=== PATIENT | female | born 1935 | race Caucasian/White ===

== ENCOUNTER 2018-04-09 17:24 | Inpatient (IN) ==
--- NOTE | 2018-04-09 18:09 | Emergency Department Note ---
General Adult HPI - General Chief complaint: Urogenital-Female Stated complaint: Confusion, cloudy urine Time Seen by Provider: 04/09/18 18:04 Source: EMS Mode of arrival: EMS Limitations: no limitations - History of Present Illness HPI Narrative: This is a dementia patient that resides at [facility] and today he has had fever and increased confusion. Patient is unable to give us any history. - Related Data Home Medications Medication Instructions Recorded Confirmed Hydrocodone/APAP 7.5/325Mg [[place] 1 tab PO Q8HP PRN 12/24/17 04/09/18 7.5-325Mg] Meloxicam [Mobic] 7.5 mg PO DAILY 12/24/17 04/09/18 OLANZapine [Zyprexa] 10 mg PO DAILY 12/24/17 04/09/18 Oxandrolone 10 mg PO DAILY 12/24/17 04/09/18 Polyethylene Glycol 3350 1,700 gm PO DAILY 12/24/17 04/09/18 [Laxaclear] medroxyPROGESTERone [Provera] 10 mg PO DAILY 12/24/17 04/09/18 traMADol [Ultram] 50 mg PO Q6HP PRN 12/24/17 04/09/18 Docusate Sodium [Colace] 100 mg PO BID 04/09/18 04/09/18 Levothyroxine Sodium [Synthroid] 112 mcg PO DAILY 04/09/18 04/09/18 Allergies Allergy/AdvReac Type Severity Reaction Status Date / Time cefazolin Allergy Unknown Verified 12/24/17 11:49 codeine Allergy Unknown Verified 12/24/17 11:49 iodine Allergy Unknown Verified 12/24/17 11:49 meperidine Allergy Unknown Verified 12/24/17 11:49 metronidazole Allergy Unknown Verified 12/24/17 11:49 morphine Allergy Unknown Verified 12/24/17 11:49 Opioids - Morphine Analogues Allergy Unknown Verified 12/24/17 11:49 Sulfa (Sulfonamide Allergy Unknown Verified 12/24/17 11:49 Antibiotics) Sulindac Allergy Unknown Verified 12/24/17 11:49 Review of Systems Limitations: ROS unobtainable due to patients medical condition Past Medical History - Past Medical History PMFSH Narrative: Medical History Hypertension (Chronic) Asthma (Chronic) Pacemaker (Chronic) Hypothyroidism (Chronic) Dehydration (Chronic) Past Surgical History History of hysterectomy (Resolved) History of knee replacement (Resolved) Family History Mom Asthma Medical history: Reports: asthma, COPD, dementia, other (pacemaker) - Social History smoking status: Unknown if ever smoked Alcohol use: Reports: None Drug use: Reports: none Physical Exam Limitations: no limitations General appearance: alert, in no apparent distress Head: atraumatic, normocephalic Eye: Present: normal appearance ENT: mucous membranes dry Neck: Present: normal inspection Chest: Present: normal inspection Respiratory: Present: normal lung sounds bilaterally Cardiovascular: Present: regular rate, normal rhythm, normal heart sounds Abdominal: Present: soft. Absent: distention, tenderness Skin: Present: warm, dry, intact Course Vital Signs Temperature 100.3 F H 04/09/18 17:25 Pulse Rate 80 04/09/18 17:25 Respiratory Rate 18 04/09/18 17:25 Blood Pressure 109/61 04/09/18 17:25 Temperature 99.9 F H 04/09/18 19:13 Pulse Rate 37 L 04/09/18 19:30 Respiratory Rate 18 04/09/18 17:25 Blood Pressure 124/97 04/09/18 19:30 Pulse Oximetry (%) 100 04/09/18 19:13 Medical Decision Making - [facility] Narrative Medical decision making narrative: Urinalysis is consistent with UTI and possible urosepsis. Blood cultures were obtained she is given Levaquin IV and she will be admitted to the hospital. - Lab Data Lab results reviewed: Yes I reviewed the patient's lab results. Result diagrams: 04/09/18 17:56 04/09/18 17:56 Lab Results 04/09/18 04/09/18 04/09/18 Range/Units 17:56 17:56 17:56 WBC 9.8 (4.5-11.0) K/mcL RBC 3.52 L (4.00-5.20) M/mcL Hgb 9.9 L (12.0-15.0) g/dL Hct 30.6 L (36.0-48.0) % MCV 86.8 (80.0-100.0) fL MCH 28.2 (26.0-34.0) pg MCHC 32.5 (31.0-36.0) g/dL RDW 14.9 H (11.5-14.5) % Plt Count 338 (140-440) K/mcL MPV 10.4 (7.4-10.4) fL Total Counted 100 Seg Neutrophils % 82 H (38-78) % Band Neutrophils % Not Reportable Lymphocytes % 8 L (15-49) % Monocytes % (Manual) 4 (1-12) % Eosinophils % (Manual) 6 (0-7) % Platelet Estimate Normal (NORMAL) RBC Morphology Normal (NORMAL) VBG Lactic Acid 2.3 H (0.5-2.2) mmol/L Sodium 137 (133-145) mmol/L Potassium 4.2 (3.3-5.1) mmol/L Chloride 100 (96-108) mmol/L Carbon Dioxide 21 L (22-30) mmol/L Anion Gap 16.0 (8-16) BUN 28 H (8-23) mg/dl Creatinine 1.1 (0.6-1.1) mg/dl GFR Calculation 46 Glucose 146 H (70-105) mg/dL Calcium 9.8 (8.6-10.4) mg/dl Total Bilirubin 0.3 (0.0-1.0) mg/dL AST 14 (0-37) U/l ALT 12 (0-40) U/l Alkaline Phosphatase 63 (39-117) U/L Total Protein 7.5 (5.9-8.4) gm/dL Albumin 3.3 (3.2-5.2) gm/dL Globulin 4.2 H (2.2-3.7) gm/dL Albumin/Globulin Ratio 0.8 L (1.0-2.3) Urine Color Urine Appearance Urine pH (5.0-9.0) Ur Specific [place] (1.000-1.035) Urine Protein (NEG) mg/dL Urine Glucose (UA) (NEG) mg/dL Urine Ketones (NEG) mg/dL Urine Occult Blood (<0.03) mg/dL Urine Nitrate (NEG) Urine Bilirubin (NEG) mg/dL Urine Urobilinogen (NEG) mg/dL Ur Leukocyte Esterase (NEG) /uL Urine RBC (0-1) /hpf Urine WBC (0-4) /hpf Ur Squamous Epith Cells (0-4) /hpf Calcium Oxalate Crystal (0) /hpf Amorphous Crystals (0) /hpf Urine Bacteria (0) /hpf Urine Mucus (0) /hpf Ur Culture Indicated? 04/09/18 Range/Units 18:06 WBC (4.5-11.0) K/mcL RBC (4.00-5.20) M/mcL Hgb (12.0-15.0) g/dL Hct (36.0-48.0) % MCV (80.0-100.0) fL MCH (26.0-34.0) pg MCHC (31.0-36.0) g/dL RDW (11.5-14.5) % Plt Count (140-440) K/mcL MPV (7.4-10.4) fL Total Counted Seg Neutrophils % (38-78) % Band Neutrophils % Lymphocytes % (15-49) % Monocytes % (Manual) (1-12) % Eosinophils % (Manual) (0-7) % Platelet Estimate (NORMAL) RBC Morphology (NORMAL) VBG Lactic Acid (0.5-2.2) mmol/L Sodium (133-145) mmol/L Potassium (3.3-5.1) mmol/L Chloride (96-108) mmol/L Carbon Dioxide (22-30) mmol/L Anion Gap (8-16) BUN (8-23) mg/dl Creatinine (0.6-1.1) mg/dl GFR Calculation Glucose (70-105) mg/dL Calcium (8.6-10.4) mg/dl Total Bilirubin (0.0-1.0) mg/dL AST (0-37) U/l ALT (0-40) U/l Alkaline Phosphatase (39-117) U/L Total Protein (5.9-8.4) gm/dL Albumin (3.2-5.2) gm/dL Globulin (2.2-3.7) gm/dL Albumin/Globulin Ratio (1.0-2.3) Urine Color Yellow Urine Appearance Turbid Urine pH 5.0 (5.0-9.0) Ur Specific [place] 1.011 (1.000-1.035) Urine Protein Neg (NEG) mg/dL Urine Glucose (UA) Negative (NEG) mg/dL Urine Ketones Neg (NEG) mg/dL Urine Occult Blood 0.03 A (<0.03) mg/dL Urine Nitrate Neg (NEG) Urine Bilirubin Neg (NEG) mg/dL Urine Urobilinogen 2.0 A (NEG) mg/dL Ur Leukocyte Esterase 500 A (NEG) /uL Urine RBC 1 (0-1) /hpf Urine WBC 89 H (0-4) /hpf Ur Squamous Epith Cells 0 (0-4) /hpf Calcium Oxalate Crystal Few A (0) /hpf Amorphous Crystals Few A (0) /hpf Urine Bacteria Mod A (0) /hpf Urine Mucus Mod (0) /hpf Ur Culture Indicated? Yes - Radiology Data Radiology results reviewed: Yes I reviewed the patient's radiology results. Disposition Pt seen by [employer]OR/PA only: No Clinical Impression: UTI (urinary tract infection) Disposition: Xfer As Inpt ([facility]) Condition: Fair Referrals: Luis Leung [Primary Care Provider] - Time of Disposition: 19:44
[2018-04-09] MEDS ORDERED: LACTATED RINGERS 1,000 ML IV ONE ×2 (18:10→20:25)
[2018-04-09 18:25] LABS: Mean Cell Volume 86.8 fL (80.0-100.0); Mean Corpuscular HGB Conc 32.5 g/dL (31.0-36.0); Mean Corpuscular Hemoglobin 28.2 pg (26.0-34.0); Platelet Count 338 K/mcL (140-440); RBC 3.52 M/mcL (4.00-5.20); Red Cell Distribution Width 14.9 % (11.5-14.5)
[2018-04-09 18:51] LABS: ALT/SGPT 12 U/l (0-40); Albumin 3.3 gm/dL (3.2-5.2); Albumin/Globulin Ratio 0.8 (1.0-2.3); Alkaline Phosphatase 63 U/L (39-117); Blood Urea Nitrogen 28 mg/dl (8-23)
[2018-04-09 18:59] LABS: Eosinophils % (Manual) 6 % (0-7); Lymphocytes % 8 % (15-49); Monocytes % (Manual) 4 % (1-12); Platelet Estimate NORMAL (NORMAL); RBC Morphology NORMAL (NORMAL); Segmented Neutrophils % 82 % (38-78)
--- NOTE | 2018-04-09 18:59 | XRay Report ---
CLINICAL INFORMATION: fever COMPARISON: 11/12/2015 FINDINGS: Moderate cardiomegaly is unchanged. Dual-chamber pacemaker leads in stable satisfactory position. Moderate hiatal hernia as increased from previous x-rays. The remaining mediastinum and pulmonary vessels are normal. Mild bibasilar airspace disease likely atelectasis effusion IMPRESSION: Mild bibasilar airspace disease, more prominent on the left, likely atelectasis Moderate hiatal hernia - increasing Interpreted and Authenticated by: Lázaro Owens 04/09/18
[2018-04-09 19:03] LABS: Appearance,Urine TURBID; Bacteria,Urine MOD /hpf (0); Bilirubin,Urine NEG (NEG); Calcium Oxalate Crystals,Urine FEW /hpf (0); Color,Urine YELLOW; Glucose,Urine (UA) NEGATIVE (NEG); Leukocyte Esterase,Urine 500 /uL (NEG); Mucus,Urine MOD /hpf (0); Protein,Urine NEG (NEG); Specific Gravity,Urine 1.011 (1.000-1.035); Urine Amorphous Crystals FEW /hpf (0); Urine Blood 0.03 mg/dL (<0.03); Urine RBC 1 /hpf (0-1); Urine Squamous Epithelial Cell 0 /hpf (0-4); Urine WBC 89 /hpf (0-4)
[2018-04-09] MEDS ORDERED: LEVOFLOXACIN 750 MG/150 ML BAG IV ONE (19:37)
[2018-04-09] MEDS ORDERED: traMADol 50 MG TABLET PO PRN ×2 (21:14→21:53)
[2018-04-09] MEDS ORDERED: HYDROCODONE/APAP 7.5/325MG TABLET PO PRN (21:14)
--- NOTE | 2018-04-09 21:25 | Internal Med History&Physical ---
Medical - H&P: [facility] Patient information: Note initiated : 04/09/18 at 9:22 pm Service Date, if different from initiated Date: [] Patient: Shweta Padilla a 82 y/o F admitted on for Confusion, cloudy urine. Chief Complaint: [] Chief complaint: worsened confusion History of present illness: Ms. Padilla is a 82 year old F elderly female with dementia. She has become more confused. She has history of recurrent urinary tract infections and dehydration. Patient is unable to give history. She was tachycardic and had mild fever of 99 so treated with sepsis fluid bolus. Patient is improved. Urine is infected and she is referred for admission ROS unobtainable: due to mental status Medical - H&P: PMH Medical history: Hypertension (Chronic) Asthma (Chronic) Pacemaker (Chronic) Hypothyroidism (Chronic) Dehydration (Chronic) decubitus ulcers left ankle Surgical history: hysterectomy knee replacement Family history: reviewed and not pertinent (unable to obtain) Social history: Resides at [facility] facility no pulsed form available so default CODE STATUS will be full code. I did try to call the guardian but not able to dial properly Have you smoked in the last 12 months: No Drug use: none Alcohol use: none Medical - H&P: Meds Home Medications Medication Instructions Recorded Confirmed Type Hydrocodone/APAP 7.5/325Mg [[place] 1 tab PO Q8HP PRN 12/24/17 04/09/18 History 7.5-325Mg] Meloxicam [Mobic] 7.5 mg PO DAILY 12/24/17 04/09/18 History OLANZapine [Zyprexa] 10 mg PO DAILY 12/24/17 04/09/18 History Oxandrolone 10 mg PO DAILY 12/24/17 04/09/18 History Polyethylene Glycol 3350 1,700 gm PO DAILY 12/24/17 04/09/18 History [Laxaclear] medroxyPROGESTERone [Provera] 10 mg PO DAILY 12/24/17 04/09/18 History traMADol [Ultram] 50 mg PO Q6HP PRN 12/24/17 04/09/18 History Docusate Sodium [Colace] 100 mg PO BID 04/09/18 04/09/18 History Levothyroxine Sodium [Synthroid] 112 mcg PO DAILY 04/09/18 04/09/18 History Allergies Allergy/AdvReac Type Severity Reaction Status Date / Time cefazolin Allergy Unknown Verified 12/24/17 11:49 codeine Allergy Unknown Verified 12/24/17 11:49 iodine Allergy Unknown Verified 12/24/17 11:49 meperidine Allergy Unknown Verified 12/24/17 11:49 metronidazole Allergy Unknown Verified 12/24/17 11:49 morphine Allergy Unknown Verified 12/24/17 11:49 Opioids - Morphine Analogues Allergy Unknown Verified 12/24/17 11:49 Sulfa (Sulfonamide Allergy Unknown Verified 12/24/17 11:49 Antibiotics) Sulindac Allergy Unknown Verified 12/24/17 11:49 Medical - H&P: Exam - Constitutional Vitals: Temp Pulse Resp BP Pulse Ox 99.9 F H 37 L 18 134/111 100 04/09/18 19:13 04/09/18 19:30 04/09/18 17:25 04/09/18 21:00 04/09/18 19:13 General appearance: no acute distress, thin, no cooperative - Head Head exam: Present: normal inspection - Eye Eye exam: Absent: conjunctival injection, scleral icterus - Respiratory Respiratory exam: Present: normal respiratory exam - Cardiovascular Cardiovascular exam: Present: normal rate and rhythm, systolic murmur - GI/Abdominal GI/Abdominal exam: Present: normal bowel sounds, soft - Additional comments: Suprapubic tenderness noted and mild fullness - Expanded Exam Bladder Distention Description: Mild Kidneys Palpable: No (nontender ) - Extremities Exam Extremities exam: Absent: pedal edema - Skin Skin exam: Present: dry, warm. Absent: cyanosis, pallor Additional comments: Skin turgor poor with mild tenting Left lateral malleolus ulcer noted shallow other documented decubitus not evaluated Medical - H&P: Reslt - Labs CBC & Chem 7: 04/09/18 17:56 04/09/18 17:56 Labs: Short CBC 04/09/18 Range/Units 17:56 WBC 9.8 (4.5-11.0) K/mcL Hgb 9.9 L (12.0-15.0) g/dL Hct 30.6 L (36.0-48.0) % Plt Count 338 (140-440) K/mcL BMP 04/09/18 17:56 Sodium 137 Potassium 4.2 Chloride 100 Carbon Dioxide 21 L BUN 28 H Creatinine 1.1 Glucose 146 H Calcium 9.8 Liver Function 04/09/18 Range/Units 17:56 Total Bilirubin 0.3 (0.0-1.0) mg/dL AST 14 (0-37) U/l ALT 12 (0-40) U/l Alkaline Phosphatase 63 (39-117) U/L Albumin 3.3 (3.2-5.2) gm/dL Urine 04/09/18 Range/Units 18:06 Urine Color Yellow Urine Appearance Turbid Urine pH 5.0 (5.0-9.0) Ur Specific [place] 1.011 (1.000-1.035) Urine Protein Neg (NEG) mg/dL Urine Glucose (UA) Negative (NEG) mg/dL Medical - H&P: A/P (1) UTI (urinary tract infection) Problem details: Recurrent problem compounded by dehydration and dementia Current visit: Yes Status: Acute Retroperitoneal ultrasound will be obtained urine culture pending continue Levaquin (2) Altered mental status Problem details: Unclear how far from her usual baseline she is unable to obtain CODE STATUS currently Current visit: Yes Status: Acute Continue home medications and (3) Decubitus skin ulcer Problem details: Patient with at least 3 decubitus ulcers and follows at the wound clinic with Dr. Miller Current visit: Yes Status: Acute Physical therapy and turning protocol to be in place - Narrative A/P Narrative: 55 minutes spent in evaluation according to cover this patient today
[2018-04-09] MEDS ORDERED: ACETAMINOPHEN 325 MG TABLET PO PRN (21:53)
[2018-04-09] MEDS: LACTATED RINGERS 1,000 ML IV SCH (22:14)
[2018-04-09] MEDS: 0.9 % SODIUM CHLORIDE 10 ML SYRINGE IV SCH (22:33)
[2018-04-09] MEDS: OLANZapine 5 MG TABLET PO SCH (22:33)
[2018-04-10] MEDS: 0.9 % SODIUM CHLORIDE 10 ML SYRINGE IV SCH ×3 (04:39→22:00)
[2018-04-10 04:56] LABS: Basophils # (Auto) 0 K/mcL (0.0-0.3); Basophils % (Auto) 0.4 % (0.0-2.0); Eosinophils # (Auto) 0.6 K/mcL (0.0-0.7); Eosinophils % (Auto) 6.3 % (0.0-7.0); Granulocytes % (Auto) 77.1 % (38.0-78.0); Lymphocytes # (Auto) 0.9 K/mcL (1.5-4.8); Mean Cell Volume 86.8 fL (80.0-100.0); Mean Corpuscular HGB Conc 33.2 g/dL (31.0-36.0); Mean Corpuscular Hemoglobin 28.8 pg (26.0-34.0); Monocytes # (Auto) 0.6 K/mcL (0.1-0.9); Monocytes % (Auto) 6.2 % (1.0-12.0); Platelet Count 313 K/mcL (140-440); RBC 2.89 M/mcL (4.00-5.20); Red Cell Distribution Width 14.5 % (11.5-14.5)
[2018-04-10 05:06] LABS: Blood Urea Nitrogen 20 mg/dl (8-23)
[2018-04-10 05:17] LABS: Cortisol,AM 10.4 ug/dl (6.2-19.4)
[2018-04-10] MEDS: LACTATED RINGERS 1,000 ML IV SCH ×2 (06:01→15:12)
[2018-04-10] MEDS ORDERED: LEVOTHYROXINE SODIUM 112 MCG TABLET PO SCH (07:30)
[2018-04-10] MEDS: LEVOTHYROXINE SODIUM 112 MCG TABLET PO SCH (08:08)
[2018-04-10] MEDS ORDERED: POLYETHYLENE GLYCOL 3350 17 GM PACKET PO SCH (09:00)
[2018-04-10] MEDS ORDERED: OXANDROLONE 2.5 MG TABLET PO SCH (09:00)
[2018-04-10] MEDS ORDERED: medroxyPROGESTERone 10 MG TABLET PO SCH (09:00)
[2018-04-10] MEDS ORDERED: MELOXICAM 7.5 MG TABLET PO SCH (09:00)
[2018-04-10] MEDS: POLYETHYLENE GLYCOL 3350 17 GM PACKET PO SCH (10:01)
[2018-04-10] MEDS: DOCUSATE SODIUM 100 MG CAPSULE PO SCH ×2 (10:01→20:24)
[2018-04-10] MEDS: MELOXICAM 7.5 MG TABLET PO SCH (10:01)
[2018-04-10] MEDS: ENOXAPARIN 30 MG/0.3 ML SYRINGE SQ SCH (10:02)
[2018-04-10] MEDS: OXANDROLONE 2.5 MG TABLET PO SCH (10:02)
[2018-04-10] MEDS: medroxyPROGESTERone 10 MG TABLET PO SCH (10:06)
--- NOTE | 2018-04-10 10:52 | Internal Med Progress Note ---
Medical - PN: Subj Patient information: Note initiated : 04/10/18 at 10:42 am Service Date, if different from initiated Date: [] Patient: Shweta Padilla 82 y/o F admitted on 04/09/18 for Confusion, Cloudy Urine/UTI. Chief Complaint: [] Interval history: gomez cath placed mar 16. has become infected and pt dehydrated. Getting better on levaquin. REnal function and VSS. Pt alert and no complaints. Doesnt know why she is here. Knows she is hospital but not the name of it. - Constitutional Vitals: Vital Signs Temp Pulse Resp BP Pulse Ox 98.0 F 69 18 118/68 84 L 04/10/18 08:30 04/10/18 04:00 04/10/18 08:30 04/10/18 08:30 04/10/18 08:30 Period Temp Pulse Resp BP Sys/[place] Pulse Ox Last 24 Hr 98.0 F-100.3 F 37-120 18-20 90-166/35-145 66-100 Intake and Output 04/09/18 04/10/18 04/10/18 21:59 05:59 13:59 Intake Total 1000 / 1000 1150 / 1150 973 / 973 Output Total 550 / 550 Balance 1000 / 1000 600 / 600 973 / 973 Weight 106 lb Intake & Output: Intake & Output 04/09/18 04/10/18 04/10/18 21:59 05:59 13:59 Intake Total 1000 / 1000 1150 / 1150 973 / 973 Output Total 550 / 550 Balance 1000 / 1000 600 / 600 973 / 973 Weight 106 lb Intake: IV 1000 / 1000 1150 / 1150 973 / 973 Lactated Ringers 1,000 ml @ 125 1000 / 1000 1000 / 1000 973 / 973 mls/hr IV .Q8H [facility] Rx#: [id number] Output: Urine Catheter Amount 550 / 550 Other: Urine Color Dark Yellow Urine Odor Strong - GI/Abdominal GI/Abdominal exam: Present: normal bowel sounds, soft - Additional comments: mild suprapubic tenderness. no flank tenderness - Back Exam Back exam: Absent: CVA tenderness (L), CVA tenderness (R) - Skin Skin exam: Present: dry, warm Additional comments: left lat malleolar ulcer 2 cm size. Ulcer on sacrum deep 1 cm and 10 cm diameter. clean base healthy looking tissue not necrotic and no foul odor. Medical - PN: Obj Da - Labs CBC & Chem 7: 04/10/18 03:30 04/10/18 03:30 Labs: Abnormal Lab Results 04/10/18 04/09/18 04/09/18 03:30 18:06 17:56 RBC 2.89 L Hgb 8.3 L Hct 25.1 L RDW Lymph % (Auto) 10.0 L Lymph # (Auto) 0.9 L Seg Neutrophils % Lymphocytes % VBG Lactic Acid 2.3 H Carbon Dioxide BUN Glucose Globulin Albumin/Globulin Ratio Urine Occult Blood 0.03 A Urine Urobilinogen 2.0 A Ur Leukocyte Esterase 500 A Urine WBC 89 H Calcium Oxalate Crystal Few A Amorphous Crystals Few A Urine Bacteria Mod A 04/09/18 04/09/18 17:56 17:56 RBC 3.52 L Hgb 9.9 L Hct 30.6 L RDW 14.9 H Lymph % (Auto) Lymph # (Auto) Seg Neutrophils % 82 H Lymphocytes % 8 L VBG Lactic Acid Carbon Dioxide 21 L BUN 28 H Glucose 146 H Globulin 4.2 H Albumin/Globulin Ratio 0.8 L Urine Occult Blood Urine Urobilinogen Ur Leukocyte Esterase Urine WBC Calcium Oxalate Crystal Amorphous Crystals Urine Bacteria Meds: Medications Acetaminophen (Tylenol) 650 mg PO Q6HP PRN PRN Reason: PAIN/FEVER > 101 Hydrocodone Bitart/Acetaminophen ([place] 7.5/325mg) 1 tab PO Q8HP PRN PRN Reason: Pain Docusate Sodium (Colace) 100 mg PO BID [facility] Last Admin: 04/10/18 10:01 Dose: 100 mg Enoxaparin Sodium (Lovenox) 30 mg SQ DAILY [facility] Last Admin: 04/10/18 10:02 Dose: 30 mg Levofloxacin (Levaquin) 250 mg in 50 mls @ 50 mls/hr IV Q24H [facility] Lactated Ringer's (Lactated Ringers) 1,000 mls @ 125 mls/hr IV .Q8H [facility] Last Admin: 04/10/18 06:01 Dose: 125 mls/hr Levothyroxine Sodium (Synthroid) 112 mcg PO QAMAC [facility] Last Admin: 04/10/18 08:08 Dose: 112 mcg Medroxyprogesterone Acetate (Provera) 10 mg PO DAILY [facility] Last Admin: 04/10/18 10:06 Dose: 10 mg Meloxicam (Mobic) 7.5 mg PO DAILY [facility] Last Admin: 04/10/18 10:01 Dose: 7.5 mg Olanzapine (Zyprexa) 10 mg PO HS [facility] Last Admin: 04/09/18 22:33 Dose: 10 mg Oxandrolone (Oxandrin) 10 mg PO DAILY [facility] Last Admin: 04/10/18 10:02 Dose: 10 mg Polyethylene Glycol (Miralax) 17 gm PO DAILY [facility] Last Admin: 04/10/18 10:01 Dose: 17 gm Sodium Chloride (Saline Flush) 10 ml IV Q8 [facility] Last Admin: 04/10/18 04:39 Dose: Not Given Tramadol HCl (Ultram) 50 mg PO Q6HP PRN PRN Reason: Pain Medical - PN: A/P - Time Spent With Patient Total time spent is greater than 50% in coordination of care (as documented) at patient's floor/unit and/or counseling patient: Greater than 35 minutes (1) UTI (urinary tract infection) Problem details: Recurrent problem compounded by dehydration and dementia Status: Acute Assessment and plan: gomez is problematic but will just be changed due to the sacral decub Current Visit: Yes (2) Altered mental status Problem details: Unclear how far from her usual baseline she is unable to obtain CODE STATUS currently Status: Acute Assessment and plan: improved. baseline demential compounded by UTI delirium. more alert today. conversant disoriented. Current Visit: Yes (3) Decubitus skin ulcer Problem details: Patient with at least 3 decubitus ulcers and follows at the wound clinic with Dr. Miller Status: Acute Assessment and plan: the pre sacral decub is large. Will change to inpatient for now for wound care. Culture planned but does not appear infected clinically Current Visit: Yes (4) Dementia arising in the senium and presenium Problem details: steady decline by chart notes. no family here yet. mild dementia 2016 more severe in last 6 months. Status: Acute Assessment and plan: need to have a POLST form addressed. Goals of care planning. Current Visit: Yes Medical - PN: Qual - Stroke Symptom Onset Unknown: No - VTE Deep Vein Thrombosis/Pulmonary Embolism Present on Admission: No
[2018-04-10] MEDS: LEVOFLOXACIN 250 MG/50 ML BAG IV SCH (11:28)
[2018-04-10] MEDS ORDERED: CIPROFLOXACIN 400 MG/200 ML BAG IV SCH (12:00)
[2018-04-10] MEDS: OLANZapine 5 MG TABLET PO SCH (20:24)
[2018-04-10] MEDS ORDERED: OLANZapine 5 MG TABLET PO SCH (21:00)
[2018-04-11] MEDS: LACTATED RINGERS 1,000 ML IV SCH ×2 (01:52→16:39)
[2018-04-11] MEDS: 0.9 % SODIUM CHLORIDE 10 ML SYRINGE IV SCH ×4 (06:02→22:50)
[2018-04-11 07:04] LABS: Basophils # (Auto) 0 K/mcL (0.0-0.3); Basophils % (Auto) 0.5 % (0.0-2.0); Eosinophils # (Auto) 0.6 K/mcL (0.0-0.7); Eosinophils % (Auto) 8.2 % (0.0-7.0); Granulocytes % (Auto) 68.9 % (38.0-78.0); Lymphocytes % (Auto) 14.7 % (15.5-49.0); Mean Cell Volume 86.4 fL (80.0-100.0); Mean Corpuscular Hemoglobin 28.5 pg (26.0-34.0); Monocytes # (Auto) 0.5 K/mcL (0.1-0.9); Monocytes % (Auto) 7.7 % (1.0-12.0); Platelet Count 275 K/mcL (140-440); RBC 2.65 M/mcL (4.00-5.20); Red Cell Distribution Width 14.6 % (11.5-14.5)
[2018-04-11 07:14] LABS: ALT/SGPT 8 U/l (0-40); Albumin 2.3 gm/dL (3.2-5.2); Albumin/Globulin Ratio 0.7 (1.0-2.3); Alkaline Phosphatase 47 U/L (39-117); Bilirubin,Direct < 0.2 mg/dL (0.0-0.3); Blood Urea Nitrogen 11 mg/dl (8-23); Gamma Glutamyl Transpeptidase 22 U/L (5-36)
[2018-04-11] MEDS: LEVOTHYROXINE SODIUM 112 MCG TABLET PO SCH (07:25)
[2018-04-11] MEDS: medroxyPROGESTERone 10 MG TABLET PO SCH (09:08)
[2018-04-11] MEDS: ENOXAPARIN 30 MG/0.3 ML SYRINGE SQ SCH (09:08)
[2018-04-11] MEDS: MELOXICAM 7.5 MG TABLET PO SCH (09:08)
[2018-04-11] MEDS: OXANDROLONE 2.5 MG TABLET PO SCH (09:08)
[2018-04-11] MEDS: POLYETHYLENE GLYCOL 3350 17 GM PACKET PO SCH (09:09)
[2018-04-11] MEDS: LEVOFLOXACIN 250 MG/50 ML BAG IV SCH (09:09)
[2018-04-11] MEDS: DOCUSATE SODIUM 100 MG CAPSULE PO SCH ×2 (09:09→20:10)
[2018-04-11] MEDS ORDERED: VANCOMYCIN PER PHARMACY IV SCH (10:49)
[2018-04-11] MEDS ORDERED: DAPTOmycin 500 MG VIAL IV SCH (11:30)
[2018-04-11] MEDS: AZTREONAM 1 GM VIAL IV SCH ×2 (11:42→22:50)
[2018-04-11] MEDS ORDERED: VANCOMYCIN 750 MG in 0.9 % SODIUM CHLORIDE 250 ML IV SCH (12:00)
[2018-04-11] MEDS: LINEZOLID 600 MG TABLET PO SCH ×2 (12:55→20:09)
--- NOTE | 2018-04-11 14:33 | Internal Med Progress Note ---
Medical - PN: Subj Patient information: Note initiated : 04/11/18 at 2:30 pm Service Date, if different from initiated Date: [] Patient: Shweta Padilla 82 y/o F admitted on 04/11/18 for Confusion, Cloudy Urine/UTI. Chief Complaint: [] Interval history: This is a 82 yr female with dementia, admitted to the hospital to obs status with altered mental status. She also has a decub wound. 04/11 Seen and examined no acute overnight events patient is demented unable to provide a meaningful history. Does not complain about any pain. I reviewed the patient's urine cultures as well as wound cultures. Her urine culture is growing Pseudomonas and enterococcus, a wound culture is growing staph aureus. Sensitivities are pending. 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 I have discontinued the patient's levofloxacin. Patient has been started on IV aztreonam, for Pseudomonas, and p.o. Zyvox for VRE and staph aureus in the wound. The patient has also dropped her hemoglobin by 2 points, at 7.6 now. Baseline is around 9.5-10.5. There is no overt reported bleeding. I believe the patient will need to be in the hospital for more than a total of 48 hours and therefore the patient has been transferred to inpatient status. Pertinent ROS: Unable - Constitutional Vitals: Vital Signs Temp Pulse Resp BP Pulse Ox 99.0 F 63 20 148/90 100 04/11/18 11:46 04/10/18 20:00 04/11/18 11:46 04/11/18 11:46 04/11/18 11:46 Period Temp Pulse Resp BP Sys/[place] Pulse Ox Last 24 Hr 98.1 F-99.0 F 62-63 16-20 114-148/55-90 97-100 Intake and Output 04/11/18 04/11/18 04/11/18 05:59 13:59 21:59 Intake Total 620 / 620 668 / 668 Output Total 800 / 800 Balance -180 / -180 668 / 668 Intake & Output: Intake & Output 04/11/18 04/11/18 04/11/18 05:59 13:59 21:59 Intake Total 620 / 620 668 / 668 Output Total 800 / 800 Balance -180 / -180 668 / 668 Intake: IV 620 / 620 548 / 548 Lactated Ringers 1,000 ml @ 75 548 / 548 mls/hr IV .[id number] [facility] Rx#: [id number] Oral 0 / 0 120 / 120 Output: Urine Catheter Amount 800 / 800 Other: Meal Breakfast Percent of Meal Consumed 50% Feeding Ability Total Assistance Urine Appearance Cloudy Reinserted Clayton Clear Urine Color Pale Reinserted Clayton Bright Yellow Urine Odor Normal Stool Size Small Stool Color Brown Stool Consistency Loose # of times incontinent of 1 1 Bowels Exam: Constitutional; Afebrile, cooperative, alert, not in distress. frail old lady Eyes- No icterus, , No periorbital swelling Ears- Ext ear normal, hearing hard to conversation. Neck- Midline trachea, supple Respiratory system: Air Entry equal on both sides, No crackles or wheezing, no rhonchi. CVS- Rate rhythm regular, S1,S2 heard, no gallop, no rub. 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 Medical - PN: Obj Da - Labs CBC & Chem 7: 04/11/18 03:30 04/11/18 03:30 Labs: Abnormal Lab Results 04/11/18 04/11/18 04/10/18 03:30 03:30 03:30 RBC 2.65 L 2.89 L Hgb 7.6 L 8.3 L Hct 22.9 L 25.1 L RDW 14.6 H MPV 10.7 H Lymph % (Auto) 14.7 L 10.0 L Eos % (Auto) 8.2 H Lymph # (Auto) 1.0 L 0.9 L Seg Neutrophils % Lymphocytes % VBG Lactic Acid Carbon Dioxide 20 L BUN Glucose Total Protein 5.6 L Albumin 2.3 L Globulin Albumin/Globulin Ratio 0.7 L Urine Occult Blood Urine Urobilinogen Ur Leukocyte Esterase Urine WBC Calcium Oxalate Crystal Amorphous Crystals Urine Bacteria 04/09/18 04/09/18 04/09/18 18:06 17:56 17:56 RBC Hgb Hct RDW MPV Lymph % (Auto) Eos % (Auto) Lymph # (Auto) Seg Neutrophils % Lymphocytes % VBG Lactic Acid 2.3 H Carbon Dioxide 21 L BUN 28 H Glucose 146 H Total Protein Albumin Globulin 4.2 H Albumin/Globulin Ratio 0.8 L Urine Occult Blood 0.03 A Urine Urobilinogen 2.0 A Ur Leukocyte Esterase 500 A Urine WBC 89 H Calcium Oxalate Crystal Few A Amorphous Crystals Few A Urine Bacteria Mod A 04/09/18 17:56 RBC 3.52 L Hgb 9.9 L Hct 30.6 L RDW 14.9 H MPV Lymph % (Auto) Eos % (Auto) Lymph # (Auto) Seg Neutrophils % 82 H Lymphocytes % 8 L VBG Lactic Acid Carbon Dioxide BUN Glucose Total Protein Albumin Globulin Albumin/Globulin Ratio Urine Occult Blood Urine Urobilinogen Ur Leukocyte Esterase Urine WBC Calcium Oxalate Crystal Amorphous Crystals Urine Bacteria Meds: Medications Acetaminophen (Tylenol) 650 mg PO Q6HP PRN PRN Reason: PAIN/FEVER > 101 Hydrocodone Bitart/Acetaminophen ([place] 7.5/325mg) 1 tab PO Q8HP PRN PRN Reason: Pain Aztreonam (Azactam) 1 gm IV Q8H [facility] Last Admin: 04/11/18 11:42 Dose: 1 gm Docusate Sodium (Colace) 100 mg PO BID [facility] Last Admin: 04/11/18 09:09 Dose: Not Given Enoxaparin Sodium (Lovenox) 30 mg SQ DAILY [facility] Last Admin: 04/11/18 09:08 Dose: 30 mg Lactated Ringer's (Lactated Ringers) 1,000 mls @ 75 mls/hr IV .[id number] [facility] Last Infusion: 04/11/18 10:15 Dose: 75 mls/hr Levothyroxine Sodium (Synthroid) 112 mcg PO QAMAC [facility] Last Admin: 04/11/18 07:25 Dose: 112 mcg Linezolid (Zyvox) 600 mg PO Q12 [facility] Last Admin: 04/11/18 12:55 Dose: 600 mg Medroxyprogesterone Acetate (Provera) 10 mg PO DAILY [facility] Last Admin: 04/11/18 09:08 Dose: 10 mg Olanzapine (Zyprexa) 10 mg PO HS [facility] Last Admin: 04/10/18 20:24 Dose: 10 mg Oxandrolone (Oxandrin) 10 mg PO DAILY [facility] Last Admin: 04/11/18 09:08 Dose: 10 mg Polyethylene Glycol (Miralax) 17 gm PO DAILY [facility] Last Admin: 04/11/18 09:09 Dose: Not Given Sodium Chloride (Saline Flush) 10 ml IV Q8 [facility] Last Admin: 04/11/18 11:43 Dose: 10 ml Medical - PN: A/P - Time Spent With Patient Total time spent is greater than 50% in coordination of care (as documented) at patient's floor/unit and/or counseling patient: (1) Decubitus skin ulcer Status: Acute Assessment and plan: Wound care following, management per them Patient on oral zyvox which should cover staph in the wound. Current Visit: Yes (2) UTI (urinary tract infection) Status: Acute Assessment and plan: Recurrent UTI, in light of AMS is being treated Pseudomonas and Enterocococcus noted IV aztreonam and PO zyvox for now Current Visit: Yes (3) Altered mental status Status: Acute Assessment and plan: BAseline? treat underlying infection and monitor high risk for delirium Current Visit: Yes (4) Dementia arising in the senium and presenium Problem details: steady decline by chart notes. no family here yet. mild dementia 2016 more severe in last 6 months. Status: Acute Assessment and plan: conservative management for now Current Visit: Yes (5) Hypertension Status: Chronic Current Visit: No (6) Asthma Status: Chronic Assessment and plan: stable, no wheezing noted prn bronchodilators Current Visit: No (7) Hypothyroidism Status: Chronic Assessment and plan: TSH 10/23 was normal continue home dose of synthroid Current Visit: No (8) Anemia Status: Acute Assessment and plan: Hb trending down this visit no e/op acute loss d/c nsaid/ mobic, start on oral ppi for now, check occult studies send for anemia workup, b12,folic acid, ferritin, iron studies. Current Visit: Yes Medical - PN: Qual - Stroke Symptom Onset Unknown: No - VTE Deep Vein Thrombosis/Pulmonary Embolism Present on Admission: No
[2018-04-11] MEDS ORDERED: IPRATROPIUM/ALBUTEROL 3 ML AMPUL.NEB NEB PRN (14:39)
--- NOTE | 2018-04-11 18:02 | General Surgery Progress Note ---
Surgical - Auxillary Note - Subjective Patient Information: Note initiated : 04/11/18 at 6:01 pm Service Date, if different from initiated Date: [] Patient: Shweta Padilla 82 y/o F admitted on 04/11/18 for Confusion, Cloudy Urine/UTI. Chief Complaint: [] Patient was seen early this morning with the wound care nurse at the hospital. On examination of the wound the proximal dressing that was in place was fairly moist. Wound bed surface not as clean as yesterday. Recommend changing dressing to cleansing of the wound with Vashe followed by moist to dry saline gauze dressings 3 times a day.
[2018-04-11] MEDS: OMEPRAZOLE 20 MG CAPSULE PO SCH (18:24)
[2018-04-11] MEDS: OLANZapine 5 MG TABLET PO SCH (20:09)
[2018-04-12] MEDS: AZTREONAM 1 GM VIAL IV SCH ×3 (05:48→22:48)
[2018-04-12] MEDS: 0.9 % SODIUM CHLORIDE 10 ML SYRINGE IV SCH ×3 (05:53→22:48)
[2018-04-12 06:22] LABS: Basophils # (Auto) 0 K/mcL (0.0-0.3); Basophils % (Auto) 0.7 % (0.0-2.0); Eosinophils # (Auto) 0.4 K/mcL (0.0-0.7); Eosinophils % (Auto) 6.9 % (0.0-7.0); Lymphocytes # (Auto) 1.1 K/mcL (1.5-4.8); Lymphocytes % (Auto) 18.6 % (15.5-49.0); Mean Cell Volume 86.8 fL (80.0-100.0); Mean Corpuscular HGB Conc 32.3 g/dL (31.0-36.0); Monocytes # (Auto) 0.4 K/mcL (0.1-0.9); Monocytes % (Auto) 6.8 % (1.0-12.0); Platelet Count 333 K/mcL (140-440); RBC 3.05 M/mcL (4.00-5.20); Red Cell Distribution Width 14.2 % (11.5-14.5)
[2018-04-12] MEDS: LACTATED RINGERS 1,000 ML IV SCH ×3 (06:22→22:48)
[2018-04-12 06:58] LABS: Ferritin 371.5 ng/ml (30-400)
[2018-04-12 06:59] LABS: ALT/SGPT 15 U/l (0-40); Albumin 2.6 gm/dL (3.2-5.2); Albumin/Globulin Ratio 0.7 (1.0-2.3); Alkaline Phosphatase 52 U/L (39-117); Bilirubin,Direct < 0.2 mg/dL (0.0-0.3); Blood Urea Nitrogen 10 mg/dl (8-23); Gamma Glutamyl Transpeptidase 23 U/L (5-36); Iron 26 mcg/dl (37-145); Transferrin % Saturation 15 % (15-50); Unsaturated Iron Binding 143 mcg/dL (112-346); Uric Acid 4.8 mg/dL (2.5-8.0)
[2018-04-12 07:07] LABS: Vitamin B12 486.1 pg/ml (232-1245)
[2018-04-12] MEDS: OMEPRAZOLE 20 MG CAPSULE PO SCH ×2 (09:29→16:55)
[2018-04-12] MEDS: LEVOTHYROXINE SODIUM 112 MCG TABLET PO SCH (09:29)
[2018-04-12] MEDS: medroxyPROGESTERone 10 MG TABLET PO SCH (09:30)
[2018-04-12] MEDS: OXANDROLONE 2.5 MG TABLET PO SCH (09:30)
[2018-04-12] MEDS: LINEZOLID 600 MG TABLET PO SCH ×2 (09:30→20:14)
[2018-04-12] MEDS: ENOXAPARIN 30 MG/0.3 ML SYRINGE SQ SCH (09:31)
[2018-04-12] MEDS: POLYETHYLENE GLYCOL 3350 17 GM PACKET PO SCH (09:32)
[2018-04-12] MEDS: DOCUSATE SODIUM 100 MG CAPSULE PO SCH ×2 (09:32→20:10)
--- NOTE | 2018-04-12 12:36 | Internal Med Progress Note ---
Medical - PN: Subj Patient information: Note initiated : 04/12/18 at 12:34 pm Service Date, if different from initiated Date: [] Patient: Shweta Padilla 82 y/o F admitted on 04/11/18 for Confusion, Cloudy Urine/UTI. Chief Complaint: [] Interval history: This is a 82 yr female with dementia, admitted to the hospital to obs status with altered mental status. She also has a decub wound. 04/11 Seen and examined no acute overnight events patient is demented unable to provide a meaningful history. Does not complain about any pain. I reviewed the patient's urine cultures as well as wound cultures. Her urine culture is growing Pseudomonas and enterococcus, a wound culture is growing staph aureus. Sensitivities are pending. 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 I have discontinued the patient's levofloxacin. Patient has been started on IV aztreonam, for Pseudomonas, and p.o. Zyvox for VRE and staph aureus in the wound. The patient has also dropped her hemoglobin by 2 points, at 7.6 now. Baseline is around 9.5-10.5. There is no overt reported bleeding. I believe the patient will need to be in the hospital for more than a total of 48 hours and therefore the patient has been transferred to inpatient status. 04/12 Patient seen examined labs reviewed, hb stable, 8.5, improved from yesterday, fob is negative. patient still is confused, but is more alert, and was sitting in chair. wound culture is mrsa urine culture for pseudyomonas and enterococcus is pending. Pertinent ROS: unable due to mental status, - Constitutional Vitals: Vital Signs Temp Pulse Resp BP Pulse Ox 99.7 F H 63 20 110/67 100 04/12/18 11:39 04/10/18 20:00 04/12/18 11:39 04/12/18 11:39 04/12/18 11:39 Period Temp Pulse Resp BP Sys/[place] Pulse Ox Last 24 Hr 98.4 F-99.7 F 18-20 103-150/47-95 94-100 Intake and Output 04/11/18 04/12/18 04/12/18 21:59 05:59 13:59 Intake Total 512 / 512 1150 / 1150 Output Total 1325 / 1325 1425 / 1425 Balance -813 / -813 -1425 / -1425 1150 / 1150 Weight 111 lb Intake & Output: Intake & Output 04/11/18 04/12/18 04/12/18 21:59 05:59 13:59 Intake Total 512 / 512 1150 / 1150 Output Total 1325 / 1325 1425 / 1425 Balance -813 / -813 -1425 / -1425 1150 / 1150 Weight 111 lb Intake: IV 452 / 452 1000 / 1000 Lactated Ringers 1,000 ml @ 75 452 / 452 1000 / 1000 mls/hr IV .[id number] [facility] Rx#: [id number] Oral 60 / 60 150 / 150 Output: Urine Catheter Amount 1325 / 1325 1425 / 1425 Other: Meal Dinner Breakfast Percent of Meal Consumed 25% 75% Feeding Ability Total Assistance Total Assistance Urine Appearance Clear Clear Reinserted Clayton Clear Clear Urine Color Bright Yellow Straw Reinserted Clayton Straw Bright Yellow Urine Odor Normal Normal Stool Size Moderate Small Smear Stool Color Brown Brown Brown Stool Consistency Loose Loose # of times incontinent of 1 1 Bowels Exam: Constitutional; Afebrile, cooperative, alert, not in distress. Eyes- No icterus, , No periorbital swelling Neck- Midline trachea, supple Respiratory system: Air Entry equal on both sides, No crackles or wheezing, no rhonchi. CVS- Rate rhythm regular, S1,S2 heard, no gallop, no rub. 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 Medical - PN: Obj Da - Labs CBC & Chem 7: 04/12/18 03:30 04/12/18 03:30 Labs: Abnormal Lab Results 04/12/18 04/12/18 04/11/18 03:30 03:30 03:30 RBC 3.05 L Hgb 8.5 L Hct 26.4 L RDW MPV Lymph % (Auto) Eos % (Auto) Lymph # (Auto) 1.1 L Seg Neutrophils % Lymphocytes % VBG Lactic Acid Chloride 109 H Carbon Dioxide 20 L BUN Glucose Phosphorus 2.4 L Iron 26 L TIBC 169 L Total Protein 5.6 L Albumin 2.6 L 2.3 L Globulin Albumin/Globulin Ratio 0.7 L 0.7 L Urine Occult Blood Urine Urobilinogen Ur Leukocyte Esterase Urine WBC Calcium Oxalate Crystal Amorphous Crystals Urine Bacteria 04/11/18 04/10/18 04/09/18 03:30 03:30 18:06 RBC 2.65 L 2.89 L Hgb 7.6 L 8.3 L Hct 22.9 L 25.1 L RDW 14.6 H MPV 10.7 H Lymph % (Auto) 14.7 L 10.0 L Eos % (Auto) 8.2 H Lymph # (Auto) 1.0 L 0.9 L Seg Neutrophils % Lymphocytes % VBG Lactic Acid Chloride Carbon Dioxide BUN Glucose Phosphorus Iron TIBC Total Protein Albumin Globulin Albumin/Globulin Ratio Urine Occult Blood 0.03 A Urine Urobilinogen 2.0 A Ur Leukocyte Esterase 500 A Urine WBC 89 H Calcium Oxalate Crystal Few A Amorphous Crystals Few A Urine Bacteria Mod A 04/09/18 04/09/18 04/09/18 17:56 17:56 17:56 RBC 3.52 L Hgb 9.9 L Hct 30.6 L RDW 14.9 H MPV Lymph % (Auto) Eos % (Auto) Lymph # (Auto) Seg Neutrophils % 82 H Lymphocytes % 8 L VBG Lactic Acid 2.3 H Chloride Carbon Dioxide 21 L BUN 28 H Glucose 146 H Phosphorus Iron TIBC Total Protein Albumin Globulin 4.2 H Albumin/Globulin Ratio 0.8 L Urine Occult Blood Urine Urobilinogen Ur Leukocyte Esterase Urine WBC Calcium Oxalate Crystal Amorphous Crystals Urine Bacteria Meds: Medications Acetaminophen (Tylenol) 650 mg PO Q6HP PRN PRN Reason: PAIN/FEVER > 101 Hydrocodone Bitart/Acetaminophen ([place] 7.5/325mg) 1 tab PO Q8HP PRN PRN Reason: Pain Albuterol/Ipratropium (Duoneb) 3 ml NEB Q6HP PRN PRN Reason: Shortness Of Breath Aztreonam (Azactam) 1 gm IV Q8H [facility] Last Admin: 04/12/18 05:48 Dose: 1 gm Docusate Sodium (Colace) 100 mg PO BID [facility] Last Admin: 04/12/18 09:32 Dose: Not Given Enoxaparin Sodium (Lovenox) 30 mg SQ DAILY [facility] Last Admin: 04/12/18 09:31 Dose: 30 mg Lactated Ringer's (Lactated Ringers) 1,000 mls @ 75 mls/hr IV .[id number] [facility] Last Admin: 04/12/18 06:22 Dose: 75 mls/hr Levothyroxine Sodium (Synthroid) 112 mcg PO QAMAC [facility] Last Admin: 04/12/18 09:29 Dose: 112 mcg Linezolid (Zyvox) 600 mg PO Q12 [facility] Last Admin: 04/12/18 09:30 Dose: 600 mg Medroxyprogesterone Acetate (Provera) 10 mg PO DAILY [facility] Last Admin: 04/12/18 09:30 Dose: 10 mg Olanzapine (Zyprexa) 10 mg PO HS [facility] Last Admin: 04/11/18 20:09 Dose: 10 mg Omeprazole (Prilosec) 20 mg PO BIDAC [facility] Last Admin: 04/12/18 09:29 Dose: 20 mg Oxandrolone (Oxandrin) 10 mg PO DAILY [facility] Last Admin: 04/12/18 09:30 Dose: 10 mg Polyethylene Glycol (Miralax) 17 gm PO DAILY [facility] Last Admin: 04/12/18 09:32 Dose: Not Given Sodium Chloride (Saline Flush) 10 ml IV Q8 [facility] Last Admin: 04/12/18 05:53 Dose: 10 ml Medical - PN: A/P - Time Spent With Patient Total time spent is greater than 50% in coordination of care (as documented) at patient's floor/unit and/or counseling patient: (1) Decubitus skin ulcer Status: Acute Assessment and plan: Wound care following, management per them Patient on oral zyvox which should cover staph in the wound. WOund culture is mrsa, but sensitive to zyvox. Current Visit: Yes (2) UTI (urinary tract infection) Status: Acute Assessment and plan: Recurrent UTI, in light of AMS is being treated Pseudomonas and Enterocococcus noted- sensitivities still pending. IV aztreonam and PO zyvox for now Current Visit: Yes (3) Altered mental status Status: Acute Assessment and plan: BAseline? treat underlying infection and monitor high risk for delirium clinically more alert today. Current Visit: Yes (4) Dementia arising in the senium and presenium Problem details: steady decline by chart notes. no family here yet. mild dementia 2016 more severe in last 6 months. Status: Acute Assessment and plan: conservative management for now - stable. 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 Current Visit: Yes Medical - PN: Qual - Stroke Symptom Onset Unknown: No - VTE Deep Vein Thrombosis/Pulmonary Embolism Present on Admission: No
[2018-04-12] MEDS: HYDROCODONE/APAP 7.5/325MG TABLET PO PRN ×2 (14:43→20:09)
[2018-04-12] MEDS: OLANZapine 5 MG TABLET PO SCH (20:10)
[2018-04-13] MEDS: HYDROCODONE/APAP 7.5/325MG TABLET PO PRN (02:05)
[2018-04-13 04:35] LABS: Basophils # (Auto) 0.1 K/mcL (0.0-0.3); Eosinophils # (Auto) 0.8 K/mcL (0.0-0.7); Eosinophils % (Auto) 12.5 % (0.0-7.0); Granulocytes % (Auto) 58.2 % (38.0-78.0); Lymphocytes # (Auto) 1.5 K/mcL (1.5-4.8); Lymphocytes % (Auto) 21.8 % (15.5-49.0); Mean Cell Volume 86.1 fL (80.0-100.0); Mean Corpuscular Hemoglobin 28.4 pg (26.0-34.0); Monocytes # (Auto) 0.4 K/mcL (0.1-0.9); Monocytes % (Auto) 6.5 % (1.0-12.0); Platelet Count 342 K/mcL (140-440); RBC 2.72 M/mcL (4.00-5.20); Red Cell Distribution Width 14.7 % (11.5-14.5)
[2018-04-13 04:59] LABS: ALT/SGPT 12 U/l (0-40); Albumin 2.4 gm/dL (3.2-5.2); Albumin/Globulin Ratio 0.8 (1.0-2.3); Alkaline Phosphatase 44 U/L (39-117); Bilirubin,Direct < 0.2 mg/dL (0.0-0.3); Blood Urea Nitrogen 15 mg/dl (8-23); Gamma Glutamyl Transpeptidase 19 U/L (5-36); Uric Acid 4.9 mg/dL (2.5-8.0)
[2018-04-13] MEDS: 0.9 % SODIUM CHLORIDE 10 ML SYRINGE IV SCH ×3 (05:50→21:54)
[2018-04-13] MEDS: AZTREONAM 1 GM VIAL IV SCH (05:50)
[2018-04-13] MEDS: LEVOTHYROXINE SODIUM 112 MCG TABLET PO SCH (06:55)
[2018-04-13] MEDS: OMEPRAZOLE 20 MG CAPSULE PO SCH ×2 (06:55→16:45)
[2018-04-13] MEDS ORDERED: MAGNESIUM SULFATE 32.48 MEQ in DEXTROSE 5% IN WATER 100 ML IV ONE (08:43)
[2018-04-13] MEDS ORDERED: POTASSIUM CHLORIDE 20 MEQ PACKET PO ONE ×2 (08:43→16:00)
[2018-04-13] MEDS: LACTATED RINGERS 1,000 ML IV SCH (08:55)
[2018-04-13] MEDS ORDERED: MAGNESIUM SULFATE IN WATER 4 GM/100 ML BAG IV ONE (09:00)
[2018-04-13] MEDS: ENOXAPARIN 30 MG/0.3 ML SYRINGE SQ SCH (09:09)
[2018-04-13] MEDS: DOCUSATE SODIUM 100 MG CAPSULE PO SCH ×2 (09:09→21:54)
[2018-04-13] MEDS: OXANDROLONE 2.5 MG TABLET PO SCH (09:09)
[2018-04-13] MEDS: POLYETHYLENE GLYCOL 3350 17 GM PACKET PO SCH (09:10)
[2018-04-13] MEDS: medroxyPROGESTERone 10 MG TABLET PO SCH (09:11)
[2018-04-13] MEDS: LINEZOLID 600 MG TABLET PO SCH ×2 (09:12→21:54)
[2018-04-13] MEDS ORDERED: LEVOFLOXACIN 500 MG TABLET PO SCH (11:25)
[2018-04-13] MEDS ORDERED: LEVOFLOXACIN 500 MG TABLET PO ONE (11:45)
--- NOTE | 2018-04-13 12:19 | Internal Med Progress Note ---
Medical - PN: Subj Patient information: Note initiated : 04/13/18 at 12:17 pm Service Date, if different from initiated Date: [] Patient: Shweta Padilla 82 y/o F admitted on 04/11/18 for Confusion, Cloudy Urine/UTI. Chief Complaint: [] Interval history: This is a 82 yr female with dementia, admitted to the hospital to obs status with altered mental status. She also has a decub wound. 04/11 Seen and examined no acute overnight events patient is demented unable to provide a meaningful history. Does not complain about any pain. I reviewed the patient's urine cultures as well as wound cultures. Her urine culture is growing Pseudomonas and enterococcus, a wound culture is growing staph aureus. Sensitivities are pending. 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 I have discontinued the patient's levofloxacin. Patient has been started on IV aztreonam, for Pseudomonas, and p.o. Zyvox for VRE and staph aureus in the wound. The patient has also dropped her hemoglobin by 2 points, at 7.6 now. Baseline is around 9.5-10.5. There is no overt reported bleeding. I believe the patient will need to be in the hospital for more than a total of 48 hours and therefore the patient has been transferred to inpatient status. 04/12 Patient seen examined labs reviewed, hb stable, 8.5, improved from yesterday, fob is negative. patient still is confused, but is more alert, and was sitting in chair. wound culture is mrsa urine culture for pseudyomonas and enterococcus is pending. 04/13 Patient seen and examined, no acute overnight events, hemoglobin is stable slight drop today to 7.6, no evidence of bleed. Patient is sitting in chair comfortable. Still confused unable to communicate very well. Microbiology reviewed. Started on oral antibiotics according to sensitivities. Urine culture is polymicrobial. Possibly discharge tomorrow. Discontinue IV fluids. Pertinent ROS: unable - Constitutional Vitals: Vital Signs Temp Pulse Resp BP Pulse Ox 100.0 F H 60 20 150/75 97 04/13/18 11:51 04/13/18 04:00 04/13/18 11:51 04/13/18 11:51 04/13/18 11:51 Period Temp Pulse Resp BP Sys/[place] Pulse Ox Last 24 Hr 98.1 F-101.4 F 60-65 14-20 122-150/56-99 97-100 Intake and Output 04/12/18 04/13/18 04/13/18 21:59 05:59 13:59 Intake Total 1000 / 1000 1122 / 1122 Output Total 200 / 200 225 / 225 Balance 800 / 800 -225 / -225 1122 / 1122 Weight 114 lb 8 oz Intake & Output: Intake & Output 04/12/18 04/13/18 04/13/18 21:59 05:59 13:59 Intake Total 1000 / 1000 1122 / 1122 Output Total 200 / 200 225 / 225 Balance 800 / 800 -225 / -225 1122 / 1122 Weight 114 lb 8 oz Intake: IV 1000 / 1000 1002 / 1002 Lactated Ringers 1,000 ml @ 75 1000 / 1000 1002 / 1002 mls/hr IV .[id number] [facility] Rx#: [id number] Oral 120 / 120 Output: Urine Catheter Amount 200 / 200 225 / 225 Other: Meal Nourishment/Supplement Nourishment/Supplement Percent of Meal Consumed 50% 100% Feeding Ability Total Assistance Total Assistance Urine Appearance Clear Cloudy Reinserted [place] Clear Urine Color Dark Yellow Dark Yellow Reinserted [place] Straw Urine Odor Normal Stool Size Small Stool Color Brown Exam: Constitutional; Afebrile, cooperative, alert, not in distress. Eyes- No icterus, , No periorbital swelling Neck- Midline trachea, supple Respiratory system: Air Entry equal on both sides, bibasilar crackles, no wheezing, no accessory muscle use CVS- Rate rhythm regular, S1,S2 heard, no gallop, no rub. 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 Medical - PN: Obj Da - Labs CBC & Chem 7: 04/13/18 03:30 04/13/18 03:30 Labs: Abnormal Lab Results 04/13/18 04/13/18 04/12/18 03:30 03:30 03:30 RBC 2.72 L Hgb 7.7 L Hct 23.4 L RDW 14.7 H MPV Lymph % (Auto) Eos % (Auto) 12.5 H Lymph # (Auto) Eos # (Auto) 0.8 H Chloride 110 H 109 H Carbon Dioxide Calcium 8.3 L Phosphorus 2.4 L 2.4 L Iron 26 L TIBC 169 L Total Protein 5.6 L Albumin 2.4 L 2.6 L Albumin/Globulin Ratio 0.8 L 0.7 L 04/12/18 04/11/18 04/11/18 03:30 03:30 03:30 RBC 3.05 L 2.65 L Hgb 8.5 L 7.6 L Hct 26.4 L 22.9 L RDW 14.6 H MPV 10.7 H Lymph % (Auto) 14.7 L Eos % (Auto) 8.2 H Lymph # (Auto) 1.1 L 1.0 L Eos # (Auto) Chloride Carbon Dioxide 20 L Calcium Phosphorus Iron TIBC Total Protein 5.6 L Albumin 2.3 L Albumin/Globulin Ratio 0.7 L Meds: Medications Acetaminophen (Tylenol) 650 mg PO Q6HP PRN PRN Reason: PAIN/FEVER > 101 Hydrocodone Bitart/Acetaminophen ([place] 7.5/325mg) 1 tab PO Q8HP PRN PRN Reason: Pain Last Admin: 04/13/18 02:05 Dose: 1 tab Albuterol/Ipratropium (Duoneb) 3 ml NEB Q6HP PRN PRN Reason: Shortness Of Breath Docusate Sodium (Colace) 100 mg PO BID [facility] Last Admin: 04/13/18 09:09 Dose: 100 mg Enoxaparin Sodium (Lovenox) 30 mg SQ DAILY [facility] Last Admin: 04/13/18 09:09 Dose: 30 mg Levofloxacin (Levaquin) 250 mg PO DAILY [facility] Levothyroxine Sodium (Synthroid) 112 mcg PO QAMAC [facility] Last Admin: 04/13/18 06:55 Dose: 112 mcg Linezolid (Zyvox) 600 mg PO Q12 [facility] Last Admin: 04/13/18 09:12 Dose: 600 mg Medroxyprogesterone Acetate (Provera) 10 mg PO DAILY [facility] Last Admin: 04/13/18 09:11 Dose: 10 mg Olanzapine (Zyprexa) 10 mg PO HS [facility] Last Admin: 04/12/18 20:10 Dose: 10 mg Omeprazole (Prilosec) 20 mg PO BIDAC [facility] Last Admin: 04/13/18 06:55 Dose: 20 mg Oxandrolone (Oxandrin) 10 mg PO DAILY [facility] Last Admin: 04/13/18 09:09 Dose: 10 mg Polyethylene Glycol (Miralax) 17 gm PO DAILY [facility] Last Admin: 04/13/18 09:10 Dose: 17 gm Potassium Chloride (Klor-Con) 20 meq PO ONCE ONE Stop: 04/13/18 16:01 Sodium Chloride (Saline Flush) 10 ml IV Q8 [facility] Last Admin: 04/13/18 05:50 Dose: Not Given Medical - PN: A/P - Time Spent With Patient Total time spent is greater than 50% in coordination of care (as documented) at patient's floor/unit and/or counseling patient: (1) Decubitus skin ulcer Status: Acute Assessment and plan: Wound care following, management per them Patient on oral zyvox which should cover staph in the wound. WOund culture is mrsa, but sensitive to zyvox. Current Visit: Yes (2) UTI (urinary tract infection) Status: Acute Assessment and plan: Recurrent UTI, in light of AMS is being treated Pseudomonas and Enterocococcus and escheria noted- sensitivities reviewed . start on oral levofloxacin and continue zyvox Current Visit: Yes (3) Altered mental status Status: Acute Assessment and plan: appears at baseline. Current Visit: Yes (4) Dementia arising in the senium and presenium Problem details: steady decline by chart notes. no family here yet. mild dementia 2016 more severe in last 6 months. Status: Acute Assessment and plan: conservative management for now - stable. 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 Current Visit: Yes Medical - PN: Qual - Stroke Symptom Onset Unknown: No - VTE Deep Vein Thrombosis/Pulmonary Embolism Present on Admission: No
[2018-04-13] MEDS: OLANZapine 5 MG TABLET PO SCH (21:53)
[2018-04-14] MEDS: 0.9 % SODIUM CHLORIDE 10 ML SYRINGE IV SCH (05:15)
[2018-04-14 05:32] LABS: Basophils # (Auto) 0 K/mcL (0.0-0.3); Basophils % (Auto) 0.7 % (0.0-2.0); Eosinophils # (Auto) 0.8 K/mcL (0.0-0.7); Eosinophils % (Auto) 14.1 % (0.0-7.0); Granulocytes % (Auto) 51.5 % (38.0-78.0); Lymphocytes # (Auto) 1.5 K/mcL (1.5-4.8); Lymphocytes % (Auto) 26.8 % (15.5-49.0); Mean Cell Volume 86.4 fL (80.0-100.0); Mean Corpuscular HGB Conc 32.7 g/dL (31.0-36.0); Mean Corpuscular Hemoglobin 28.3 pg (26.0-34.0); Monocytes # (Auto) 0.4 K/mcL (0.1-0.9); Monocytes % (Auto) 6.9 % (1.0-12.0); Platelet Count 335 K/mcL (140-440); RBC 2.79 M/mcL (4.00-5.20); Red Cell Distribution Width 14.7 % (11.5-14.5)
[2018-04-14 06:08] LABS: ALT/SGPT 11 U/l (0-40); Albumin 2.5 gm/dL (3.2-5.2); Albumin/Globulin Ratio 0.8 (1.0-2.3); Alkaline Phosphatase 37 U/L (39-117); Bilirubin,Direct < 0.2 mg/dL (0.0-0.3); Blood Urea Nitrogen 16 mg/dl (8-23); Gamma Glutamyl Transpeptidase 18 U/L (5-36); Uric Acid 4.9 mg/dL (2.5-8.0)
--- NOTE | 2018-04-14 06:42 | Consultation ---
DATE OF CONSULTATION: 04/11/2018 WOUND CARE CONSULT CHIEF COMPLAINT: Ms. Padilla is seen in consultation at the request of the hospitalist service for sacral ulcer. HISTORY OF PRESENT ILLNESS: The patient is an 82-year-old woman admitted for confusion and UTI. The patient was to be seen in wound care clinic today, but because of admission will not be able to be seen. She is seen in the hospital instead. PAST MEDICAL HISTORY: Significant for hypertension, asthma, pacemaker, hypothyroidism and history of prior decubitus ulcer on the ankle. MEDICATIONS: At home include hydrocodone, meloxicam, olanzapine, MiraLax, medroxyprogesterone, levothyroxine. ALLERGIES: CEFAZOLIN, CODEINE, IODINE, MEPERIDINE, METRONIDAZOLE, MORPHINE, SULFA AND SULINDAC. PHYSICAL EXAMINATION: GENERAL: Ms. Padilla is an elderly woman who appears older than her stated age. She is lying in the bed. She is slightly confused in her speech, but is verbally communicative. She is in no acute distress. Focused examination of the sacral region shows a circular opening overlying the sacral prominence with some undermining primarily in the inferior aspect. The base of the wound shows granulation tissue, but this does not appear to be very active as it is pale in color. The wound edges show no fluctuance or significant erythema. ASSESSMENT AND PLAN: Sacral pressure sore. Wound will be dressed with Aquacel AG to the area and changed daily. The patient is reportedly unable to walk, although I cannot find reason in her medical history to explain her inability to walk other than progressive deconditioning, probably from not ambulating for some time. Nurses who have taken care of her in the past report that she may have some contractures though I do not see where there is a history of stroke. Movement of the patient's legs in the bed does not reveal a significant contracture. If the patient does have the ability to walk, then strongly recommend aggressive physical therapy to try and help her walk. I realized with her dementia, this may be difficult but if she can be gotten out of bed intermittently even for short periods, this is likely to help her wound to heal. RC:mark Job ID: [id number] Doc ID: [id number] Adwoa LARSON
--- NOTE | 2018-04-14 08:15 | XRay Report ---
CLINICAL INFORMATION: fever COMPARISON: 04/09/2018 FINDINGS: Moderate cardiomegaly is unchanged. Pacemaker leads in stable satisfactory position. Mediastinum and pulmonary vessels are normal. Small region of airspace disease in both medial bases have progressed. This is more likely atelectasis, then infiltrate. No effusion IMPRESSION: Small regions of atelectasis or, less likely, infiltrate progressing in both medial bases Interpreted and Authenticated by: Lázaro Owens 04/14/18
[2018-04-14] MEDS ORDERED: LEVOFLOXACIN 500 MG TABLET PO SCH (09:00)
[2018-04-14] MEDS: DOCUSATE SODIUM 100 MG CAPSULE PO SCH (09:14)
[2018-04-14] MEDS: OXANDROLONE 2.5 MG TABLET PO SCH (09:14)
[2018-04-14] MEDS: LINEZOLID 600 MG TABLET PO SCH (09:14)
[2018-04-14] MEDS: medroxyPROGESTERone 10 MG TABLET PO SCH (09:14)
[2018-04-14] MEDS: ENOXAPARIN 30 MG/0.3 ML SYRINGE SQ SCH (09:15)
[2018-04-14] MEDS: POLYETHYLENE GLYCOL 3350 17 GM PACKET PO SCH (09:15)
[2018-04-14] MEDS: OMEPRAZOLE 20 MG CAPSULE PO SCH (09:16)
[2018-04-14] MEDS: LEVOTHYROXINE SODIUM 112 MCG TABLET PO SCH (09:16)
--- NOTE | 2018-04-14 10:25 | Discharge Summary ---
Medical - DS: Prov Patient information: Note initiated : 04/14/18 at 10:21 am Service Date, if different from initiated Date: [] Patient: Shweta Padilla 82 y/o F admitted on 04/11/18 for Confusion, Cloudy Urine/UTI. Chief Complaint: [] Date of admission: 04/11/18 13:19 Discharge date: 04/14/18 Primary care physician: Luis Leung Consults: 04/10/18 12:35 Consult to Physician [CONS] Routine Comment: coccyx wound Consulting Provider: Adwoa Sotomayor Reason For Exam: Physician to Consult Discharging clinician: Earnest Urias Medical - DS: Meds - Discharge Medications Prescriptions: Levofloxacin [Levaquin] 250 mg PO DAILY #7 tab Linezolid [Zyvox] 600 mg PO Q12 #20 tab Oxandrolone 10 mg PO DAILY #30 tab traMADol [Ultram] 50 mg PO Q6HP PRN #30 tab PRN Reason: Pain Active and Home Medications: Home Medications Hydrocodone/APAP 7.5/325Mg [[place] 7.5-325Mg] 1 tab PO Q8HP PRN 12/24/17 [ History Confirmed 04/09/18 Last Taken Unknown] Meloxicam [Mobic] 7.5 mg PO DAILY 12/24/17 [History Confirmed 04/09/18 Last Taken Unknown] OLANZapine [Zyprexa] 10 mg PO DAILY 12/24/17 [History Confirmed 04/09/18 Last Taken Unknown] Oxandrolone 10 mg PO DAILY 12/24/17 [History Confirmed 04/09/18 Last Taken Unknown] Polyethylene Glycol 3350 [Laxaclear] 1,700 gm PO DAILY 12/24/17 [History Confirmed 04/09/18 Last Taken Unknown] medroxyPROGESTERone [Provera] 10 mg PO DAILY 12/24/17 [History Confirmed Last Taken Unknown] traMADol [Ultram] 50 mg PO Q6HP PRN 12/24/17 [History Confirmed 04/09/18 Last Taken Unknown] Docusate Sodium [Colace] 100 mg PO BID 04/09/18 [History Confirmed 04/09/18 Last Taken Unknown] Levothyroxine Sodium [Synthroid] 112 mcg PO DAILY 04/09/18 [History Confirmed Last Taken Unknown] Medical - DS: Hosp Hospital course: This is a 82 yr female with dementia, admitted to the hospital with altered mental status secondary to UTI and she also has a decub wound. The patient was treated per protocol for sepsis, responded well UTI- Recurrent UTi, patient urine culture was positive for multiple organisms, pseudomonas, escheri furgosoni, and enterococcus, all of which is sensitive for levofloxacin adn zyvox. Chronic Decub wound- seen by wound care provider in hospital, to continue with wound care at the facility. Patient wound culture was positive for MRSA, will be treated with zyvox for 10 days. Patient has low hb, but has remained stable during hospital stay, no e/o bleed, fob negative. 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 Dementia/ Altered mental status- patient has significant dementia at baseline, but seems to have improved cognition throughout the hospitalization. Rest of the stay in the hospital unremarkable, no changes made in [facility] home medication list. Discharge diagnosis: WOund infectino, UTI, - Time Spent with Patient Total time spent providing and/or coordinating discharge services: Greater than 30 minutes Medical - DS: Exam - Constitutional Vitals: Vital Signs Temp Pulse Pulse Resp BP BP BP 04/14/18 08:00 98.8 F 88 18 146/88 04/14/18 04:00 98.8 F 59 L 18 135/61 04/13/18 23:42 66 16 04/13/18 23:25 97.7 F 65 18 141/65 04/13/18 19:57 98.7 F 85 24 H 141/77 04/13/18 16:30 99.9 F H 24 H 157/78 04/13/18 11:51 100.0 F H 20 150/75 Pulse Ox 04/14/18 08:00 99 04/14/18 04:00 96 04/13/18 23:42 04/13/18 23:25 96 04/13/18 19:57 100 04/13/18 16:30 100 04/13/18 11:51 97 Intake and Output 04/13/18 04/14/18 04/14/18 21:59 05:59 13:59 Intake Total 170 / 170 40 / 40 120 / 120 Output Total 750 / 750 475 / 475 250 / 250 Balance -580 / -580 -435 / -435 -130 / -130 Intake: Oral 170 / 170 40 / 40 120 / 120 Output: Urine Catheter Amount 750 / 750 475 / 475 250 / 250 Other: Meal Dinner Nourishment/Supplement Breakfast Percent of Meal Consumed 75% 75% 50% Feeding Ability Total Assistance Total Assistance Total Assistance Urine Appearance Clear Clear Reinserted [place] Clear Clear Urine Color Bright Yellow Straw Reinserted [place] Bright Yellow Pale Urine Odor Normal Normal Stool Size Smear Stool Color Brown Stool Consistency Loose Weight 114 lb 8 oz Additional comments: Constitutional; Afebrile, cooperative, alert, not in distress. Eyes- No icterus, , No periorbital swelling Neck- Midline trachea, supple Respiratory system: Air Entry equal on both sides, mild basilar insp crackles, no wheezing, no rhonchi. CVS- Rate rhythm regular, S1,S2 heard, no gallop, no rub. Abdomen- Soft nontender abdomen, no organomegaly, no tenderness, no guarding or rigidity, [employer]- AOOx1, moving all extremities, no gross focal deficit noted. Medical - DS: Data Labs on day of discharge: Labs from last 24 hours 04/14/18 04/14/18 04/14/18 08:43 03:30 03:30 WBC 5.5 RBC 2.79 L Hgb 7.9 L Hct 24.1 L MCV 86.4 MCH 28.3 MCHC 32.7 RDW 14.7 H Plt Count 335 MPV 9.3 Gran % 51.5 Lymph % (Auto) 26.8 [place] % (Auto) 6.9 Eos % (Auto) 14.1 H Baso % (Auto) 0.7 Gran # 2.8 Lymph # (Auto) 1.5 [place] # (Auto) 0.4 Eos # (Auto) 0.8 H Baso # (Auto) 0 Sodium 143 Potassium 4.2 Chloride 111 H Carbon Dioxide 21 L Anion Gap 11.0 BUN 16 Creatinine 0.8 GFR Calculation 68 Glucose 77 Uric Acid 4.9 Calcium 8.0 L Phosphorus 2.4 L Magnesium 2.4 Total Bilirubin < 0.2 Direct Bilirubin < 0.2 GGT 18 AST 13 ALT 11 Alkaline Phosphatase 37 L Lactate Dehydrogenase 153 Total Protein 5.5 L Albumin 2.5 L Globulin 3.0 Albumin/Globulin Ratio 0.8 L Triglycerides 45 Procalcitonin < 0.05 Preliminary micro results at discharge 04/09/18 19:56 Blood Culture - Preliminary Blood 04/09/18 20:02 Blood Culture - Preliminary Blood Medical - DS: A/P - Patient/Caregiver Discharge Instructions Activity: as per physical therapy, increase activity as tolerated Diet: Dysphagia Pureed, Thickened Liquids (nectar thin liquid. ) Additional Instructions: Take levofloxacin for another 7 days Take linezolid for another 10 days Follow up with wound care clinic; Scheduled for April 21 @ 1:20 PM. Wound care instructions as per wound care provider Follow up with PCP in 1 week Try and work with the patient to help her with acapella and incentive spirometry. Go to her ER if worsening fever, chills, chest pain, or any other acute concern. Prescriptions: Levofloxacin [Levaquin] 250 mg PO DAILY #7 tab Linezolid [Zyvox] 600 mg PO Q12 #20 tab Oxandrolone 10 mg PO DAILY #30 tab traMADol [Ultram] 50 mg PO Q6HP PRN #30 tab PRN Reason: Pain Other Amb Orders: Wound Care Instructions Location: None Selected - Problem Maintenance (1) Decubitus skin ulcer Status: Acute (2) UTI (urinary tract infection) Status: Acute (3) Altered mental status Status: Acute (4) Dementia arising in the senium and presenium Status: Acute Comment: steady decline by chart notes. no family here yet. mild dementia 2016 more severe in last 6 months. (5) Asthma Status: Chronic (6) Hypothyroidism Status: Chronic Qualifiers: Hypothyroidism type: acquired Qualified Code(s): E03.9 - Hypothyroidism, unspecified (7) Anemia Status: Acute - Follow up Plan Follow up with: Marcelino Miller MD [Physician] - 04/21/18 1:20 pm () Luis Leung [Primary Care Provider] - Disposition: Xfer SNF Prognosis: Fair Rehab Potential: Fair I certify that the patient requires SNF services: Yes Overall status at discharge: patient is progressing back to baseline Medical - DS: Qual - VTE Deep Vein Thrombosis/Pulmonary Embolism Present on Admission: No
== END 2018-04-14 13:44 | DRG 689 ==
LOC: ED 17:24 → MEDSUR 17:24 → ICU 04-10 01:33
PROVIDERS: ADMIT Internal Medicine; ATTEND Internal Medicine
CPT/HCPCS: 84145; 97162; 97167; 99231; 99238; A6197; A6213; A6248; A6250; G0378; J1650; J1956; J7120